=== PATIENT | male | born 1990 | race Two or more races ===

== ENCOUNTER → 2020-06-25 | Emergency (ER) | payer OTHER ==
[~2020-06-25] VITALS: Ht 162.6 cm; Wt 83.9 kg
[~2020-06-25] MED LIST: COZAAR50 MG; KETO10TA2 PO; LEVOFLOXACIN500 MG PO; TAMS0.4C PO; ULTRACET PO
== END | disposition home or self-care (01) ==
LOC: ER 18:30
DX: N20.0 Calculus of kidney (principal); R10.31 Right lower quadrant pain

== ENCOUNTER → 2022-05-28 | Emergency (ER) | payer OTHER ==
[~2022-05-28] VITALS: Ht 162.6 cm; Wt 83.9 kg
[~2022-05-28] MED LIST changes: +PROTONIX20 MG
== END | disposition left against medical advice (07) ==
LOC: ER 22:46
DX: U07.1 COVID-19 (principal)